=== PATIENT | male | born 1965 | race Caucasian/White ===

== ENCOUNTER → 2016-11-12 | Outpatient (CLI) | payer MEDICARE, MEDICAID | END | disposition home or self-care (01) | LOC: M RADPRO 11:26 | PROVIDERS: ATTEND Neurological Surgery | DX: G91.0 Communicating hydrocephalus (principal); Z53.9 Procedure and treatment not carried out, unspecified reason ==

== ENCOUNTER → 2016-11-24 | Outpatient (CLI) | payer MEDICARE, MEDICAID ==
[~2016-11-24] MED LIST: ACETAMINOPHEN 325 MG TAB As Ordered ONE; ACETAMINOPHEN TAB 650MG DOSE (2X325MG) As Ordered ONE; ACETAMINOPHEN TAB 650MG DOSE (2X325MG) PO PRN; MIDAZOLAM INJ 2 MG/2 ML VIAL (J2250) As Ordered ONE; fentaNYL 100 MCG/2 ML INJECTION (J3010) As Ordered ONE
[2016-11-24 10:10] LABS: GLUCOSE CSF 58 MG/DL (40-75)
[2016-11-24 10:45] LABS: APPEARANCE, CSF CLEAR (CLEAR); COLOR, CSF COLORLESS (COLORLESS); CSF DIFF IF INDICATED? NO (NO); CSF DILUENT LOT # 6277; CSF TUBE# CELL CNT TUBE 1; RBC CSF AUTO 3 /mm3 (0-0); WBC CSF AUTO 1 /mm3 (0-10)
[2016-11-24 11:00] VITALS: BP 130/87
--- NOTE | 2016-11-27 13:49 | REP ---
Radionuclide cisternogram: History: Communicating hydrocephalus. Procedure: The injection procedure is performed and dictated separately. The intrathecally injected dose of radiotracer is 1.1 mCi of Indium-111 DTPA given via lumbar puncture. Postinjection AP views of the spine, neck, and skull base demonstrate successful intrathecal injection with rising of the radiotracer to the skull base. Six hour, 24 hour, 48 hour, and 72 hour images are obtained. At 6 hours, there is prominent ventricular reflux of radiotracer into the lateral and third ventricles. This persists at 24 and 48 hours and with more intraventricular than peripheral radiotracer. There is delay in the ascent of radiotracer to the midline convexity which is not seen until 72 hours. Impression: Early and persistent ventricular reflux with delayed ascent of subarachnoid tracer to the convexities. 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 Signed by Dennys Dooley MD 11/27/2016 04:40 P
--- NOTE | 2016-11-27 14:21 | REP ---
FLUOROSCOPIC GUIDANCE FOR LUMBAR PUNCTURE AND CISTERNOGRAM INJECTION: The procedure was performed under the direct supervision of Dr. Reed. The risks and benefits of the procedure were explained and informed consent was obtained by the health care proxy. Anesthesia was present for sedation throughout the procedure. The L3-4 interspace was localized using fluoroscopic guidance. The skin was prepped and draped in a sterile fashion. 1% lidocaine was used as a local anesthetic. Using fluoroscopic guidance a 22-gauge spinal needle was inserted and advanced into the thecal sac. 31 mL of spinal fluid was withdrawn and sent to the lab. 1.10 millicuries of indium 111 DTPA was injected. The needle was then removed. The patient was taken to recovery by anesthesia. The patient tolerated the procedure well and there were no immediate complications. After the appropriate amount of monitored convalescence, the patient was discharged from the department. 0.2 minutes of fluoroscopy time was utilized for this procedure. Reviewed by DELMA Yanez 11/27/2016 04:31 PEdited and Signed by Messi Reed MD 11/27/2016 04:59 P
[2016-12-10 07:07] LABS: CSF CREUTZFELDT-JAKOB DISEASE SEE SEPARATE REPORT
== END | disposition home or self-care (01) ==
LOC: M RADPRO 07:55 → EDUNIT# 08:00
PROVIDERS: ATTEND Neurological Surgery
DX: G91.0 Communicating hydrocephalus (principal); I10 Essential (primary) hypertension; N40.0 Benign prostatic hyperplasia without lower urinary tract symptoms; B19.10 Unspecified viral hepatitis B without hepatic coma; G81.90 Hemiplegia, unspecified affecting unspecified side; F99 Mental disorder, not otherwise specified; H91.90 Unspecified hearing loss, unspecified ear; Z79.899 Other long term (current) drug therapy
CPT/HCPCS: 61055; 62270; 77002; 78630; 82945; 84157; 84182; 86317; 87015; 87070; 87205; 88313; 89050; A9548; J2250; J3010